=== PATIENT | female | born 1935 | race Caucasian/White ===

== ENCOUNTER 2019-09-05 11:16 | Outpatient (CLI) | payer MEDICARE | END 2019-09-05 11:17 | disposition short-term general hospital (02) | LOC: EMS 11:16 | PROVIDERS: ATTEND Surgery | DX: R41.82 Altered mental status, unspecified (principal); R53.1 Weakness; R19.7 Diarrhea, unspecified | CPT/HCPCS: A0425; A0427 ==

== ENCOUNTER 2021-09-19 19:11 | Outpatient (CLI) | payer MEDICARE | END 2021-09-19 19:12 | disposition EMS.NT | LOC: EMS 19:11 | DX: Z03.89 Encounter for observation for other suspected diseases and conditions ruled out (principal) ==

== ENCOUNTER 2021-12-03 21:11 | Outpatient (CLI) | payer MEDICARE | END 2021-12-03 21:12 | disposition EMS.NT | LOC: EMS 21:11 | DX: Z03.89 Encounter for observation for other suspected diseases and conditions ruled out (principal) ==

== ENCOUNTER 2021-12-07 15:11 | Outpatient (CLI) | payer MEDICARE | END 2021-12-07 15:12 | disposition EMS.NT | LOC: EMS 15:11 | DX: Z03.89 Encounter for observation for other suspected diseases and conditions ruled out (principal) ==

== ENCOUNTER 2021-12-25 15:34 | Outpatient (CLI) | payer MEDICARE | END 2021-12-25 15:35 | disposition EMS.NT | LOC: EMS 15:34 | DX: Z03.89 Encounter for observation for other suspected diseases and conditions ruled out (principal) ==